=== PATIENT | female | born 1990 | race Caucasian/White ===

== ENCOUNTER 2019-12-13 02:19 | Emergency (ER) | payer SELFPAY ==
[2019-12-13] MEDS ORDERED: Lidocaine 1% with EPINEPHrine 1:100,000 20 ML MDV ONE (02:22)
[2019-12-13] MEDS ORDERED: Amoxicillin/Clavulanate K 875-125 MG Tab PO ONE (02:50)
[2019-12-13] MEDS ORDERED: Bacitracin Oint 1 GM U/D Packet TOP ONE (02:51)
[2019-12-13] MEDS ORDERED: Diphtheria,Pertussis(Acell),Tetanus Vaccine 0.5 ML Syringe IM ONE (02:51)
--- NOTE | 2019-12-13 02:57 | EDM.PDOC ---
ED HPI GENERAL MEDICAL PROBLEM - General Chief Complaint: Laceration Stated Complaint: RT HAND INJURY Time Seen by Provider: 12/13/19 02:52 Source of Information: Reports: Patient History Limitations: Reports: No Limitations - History of Present Illness INITIAL COMMENTS - FREE TEXT/NARRATIVE: 29-year-old female presents the emergency room with chief complaint of laceration to the right hand along the webspace of the thumb after slamming it in a door. Onset: Today Duration: Hour(s): (1 hour prior to presentation) Location: Reports: Upper Extremity, Right Severity: Mild Improves with: Reports: None Worsens with: Reports: None Abdomen Pain Score (Numeric/FACES): 10 - Related Data Allergies Allergy/AdvReac Type Severity Reaction Status Date / Time Latex, Natural Rubber Allergy Rash Verified 12/13/19 02:25 Home Meds: Home Meds . [No Known Home Meds] 12/13/19 [History] Past Medical History HEENT History: Reports: None Cardiovascular History: Reports: None Respiratory History: Reports: None Gastrointestinal History: Reports: None Genitourinary History: Reports: None [employer]ATE History: Reports: None Musculoskeletal History: Reports: None Neurological History: Reports: None Psychiatric History: Reports: None Endocrine/Metabolic History: Reports: None Insulin Pump Model and Relay Motorman: N/A Hematologic History: Reports: None Immunologic History: Reports: None Oncologic (Cancer) History: Reports: None Dermatologic History: Reports: None - Infectious Disease History Infectious Disease History: Reports: None - Past Surgical History Head Surgeries/Procedures: Reports: None Female Surgical History: Reports: None Social & Family History - Family History Family Medical History: Noncontributory - Tobacco Use Smoking Status *Q: Never Smoker - Caffeine Use Caffeine Use: Reports: None - Recreational Drug Use Recreational Drug Use: No ED ROS GENERAL - Review of Systems Review Of Systems: See Below Constitutional: Reports: No Symptoms HEENT: Reports: No Symptoms Respiratory: Reports: No Symptoms Cardiovascular: Reports: No Symptoms Endocrine: Reports: No Symptoms GI/Abdominal: Reports: No Symptoms : Reports: No Symptoms Musculoskeletal: Reports: No Symptoms Skin: Reports: Bruising, Wound, Other (Sustained a 4 cm laceration to the webspace dorsal aspect of the hand) Neurological: Reports: No Symptoms Psychiatric: Reports: No Symptoms Hematologic/Lymphatic: Reports: No Symptoms Immunologic: Reports: No Symptoms ED EXAM, SKIN/RASH Exam: See Below Text/Narrative:: 29-year-old female sustained a 4 cm laceration to the dorsal aspect of the webspace of the right hand. Patient has good range of motion neurovascular intact. Patient has a incision not involving any tendon or vascular aspect. Exam Limited By: No Limitations General Appearance: Alert, WD/WN, No Apparent Distress Eye Exam: Bilateral Eye: Normal Fundi, Normal Inspection, PERRL Ears: Normal External Exam, Normal Canal Head: Atraumatic Neck: Normal Inspection Respiratory/Chest: No Respiratory Distress, Lungs Clear Cardiovascular: Normal Peripheral Pulses, Regular Rate, Rhythm GI/Abdominal: Normal Bowel Sounds, Soft, Non-Tender (Female) Exam: Deferred Rectal (Female) Exam: Deferred Back Exam: Normal Inspection, Full Range of Motion Extremities: Normal Inspection, Other (4 cm laceration to the dorsal aspect of the left hand along the webspace. Laceration appears not to involve any ligaments or vascular structure.) Skin: Warm, Mottled, Wound/Incision Location, Skin: Upper Extremity, Right Associated features: Tenderness, Swelling Lymphatic: No Adenopathy ED SKIN PROCEDURES - Laceration/Wound Repair Right Hand Appearance: Linear Distal NVT: Neuro & Vascular Intact, No Tendon Injury Anesthetic Type: Local Local Anesthesia - Lidocaine (Xylocaine): 1% with EPI Local Anesthetic Volume: 4cc Skin Prep: Chlorhexidine (Hibiciens) Exploration/Debridement/Repair: Wound Explored, No Foreign Material Found Closed with: Sutures Lac/Wound length In cm: 4 Suture Size: 4-0 Suture Type: Nylon, Mattress Suture Size: 4-0 # of Sutures: 4 Repaired with: Other Drain Placement: No Sterile Dressing Applied: Nurse Tetanus Status Addressed: Yes Complications: No Course - Vital Signs Text/Narrative:: 29-year-old female presents the emergency room after injuring her hand by closing it in a door. Patient sustained a 4 cm laceration to the dorsal aspect of the right hand. Patient has full range of motion neurologically intact. Patient has no evidence of any bony or joint involvement. Patient's wound was addressed irrigated and cleaned by the nurses prior to presentation. Patient was anesthetized with 1% lidocaine with epi approximately 5 cc. The wound was explored 0 debridement was done. No foreign bodies were seen. The wound was irrigated approximately 20 cc again. Wound was closed using sterile technique 4-0 Dermalon with a mattress stitch. Patient received a tetanus shot and a dressing was placed. Patient also was given 875 mg of Augmentin.. Patient will be discharged will condition will follow up in [place]. Patient has been given 4 days of Augmentin and told to follow up within 7 days for suture removal. Patient told to follow-up at the nearest emergency room if hand becomes painful red swollen or any signs of infection. Also instructed to present to the closest hospital for any signs of numbness. Last Recorded V/S: Last Vital Signs Temp 97 F 12/13/19 02:25 Pulse 89 12/13/19 02:25 Resp 18 12/13/19 02:25 BP 121/98 H 12/13/19 02:25 Pulse Ox 98 12/13/19 02:25 - Orders/Labs/Meds Orders: Active Orders 24 hr Category Date Time Status Vaccines to be Administered [RC] PER UNIT ROUTINE Care 12/13/19 02:51 Ordered Amoxicillin/Clavulanate K [Augmentin 875 MG/125 MG] Med 12/13/19 02:50 Once 1 tab PO ONETIME ONE Bacitracin [Bacitracin Oint 1 GM] Med 12/13/19 02:51 Once 1 dose TOP ONETIME ONE Diphth,Pertuss(Acell),Tet Vac [Adacel] Med 12/13/19 02:51 Once 0.5 ml IM .ONCE ONE Medication Orders Amoxicillin/Clavulanate Potassium (Augmentin 875 Mg/125 Mg) 1 tab PO ONETIME ONE Stop: 12/13/19 02:51 Bacitracin (Bacitracin Oint 1 Gm) 1 dose TOP ONETIME ONE Stop: 12/13/19 02:52 Diphtheria/Tetanus/Acell Pertussis (Adacel) 0.5 ml IM .ONCE ONE Stop: 12/13/19 02:52 Meds: Medications Generic Name Dose Route Start Last Admin Trade Name Freq PRN Reason Stop Dose Admin Amoxicillin/Clavulanate Potassium 1 tab 12/13/19 02:50 Augmentin 875 Mg/125 Mg PO 12/13/19 02:51 ONETIME ONE Bacitracin 1 dose 12/13/19 02:51 Bacitracin Oint 1 Gm TOP 12/13/19 02:52 ONETIME ONE Diphtheria/Tetanus/Acell Pertussis 0.5 ml 12/13/19 02:51 Adacel IM 12/13/19 02:52 .ONCE ONE Discontinued Medications Generic Name Dose Route Start Last Admin Trade Name Keila PRN Reason Stop Dose Admin Lidocaine/Epinephrine Confirm 12/13/19 02:22 Xylocaine 1% With Epinephrine 1:100,000 Administered 12/13/19 02:23 Dose 20 ml .ROUTE .STK-MED ONE Departure - Departure Time of Disposition: 03:03 Disposition: Home, Self-Care 01 Condition: Good Clinical Impression: Laceration of hand Qualifiers: Encounter type: initial encounter Foreign body presence: without foreign body Laterality: right Qualified Code(s): S61.411A - Laceration without foreign body of right hand, initial encounter - Discharge Information *PRESCRIPTION DRUG MONITORING PROGRAM REVIEWED*: No Instructions: Laceration Care, Adult, Laceration Care, Adult, [id number], Sutured Wound Care, [id number] Sepsis Event Note - Evaluation Sepsis Screening Result: No Definite Risk - Focused Exam Vital Signs: Vital Signs Temp Pulse Resp BP Pulse Ox 12/13/19 02:25 97 F 89 18 121/98 H 98 Date Exam was Performed: 12/13/19 Time Exam was Performed: 02:52 - My Orders Last 24 Hours: My Active Orders 12/13/19 02:50 Amoxicillin/Clavulanate K [Augmentin 875 MG/125 MG] 1 tab PO ONETIME ONE 12/13/19 02:51 Vaccines to be Administered [RC] PER UNIT ROUTINE Bacitracin [Bacitracin Oint 1 GM] 1 dose TOP ONETIME ONE Diphth,Pertuss(Acell),Tet Vac [Adacel] 0.5 ml IM .ONCE ONE - Assessment/Plan Last 24 Hours: My Active Orders 12/13/19 02:50 Amoxicillin/Clavulanate K [Augmentin 875 MG/125 MG] 1 tab PO ONETIME ONE 12/13/19 02:51 Vaccines to be Administered [RC] PER UNIT ROUTINE Bacitracin [Bacitracin Oint 1 GM] 1 dose TOP ONETIME ONE Diphth,Pertuss(Acell),Tet Vac [Adacel] 0.5 ml IM .ONCE ONE
== END 2019-12-13 03:20 | disposition home or self-care (01) ==
LOC: MW.ED 02:19
DX: S61.411A Laceration without foreign body of right hand, initial encounter (principal); Z91.040 Latex allergy status; Z23 Encounter for immunization; W22.8XXA Striking against or struck by other objects, initial encounter
CPT/HCPCS: 12002; 90471; 90715; 99282; A9270; 99283

== ENCOUNTER 2019-12-18 12:53 | Emergency (ER) | payer SELFPAY | END 2019-12-18 13:12 | disposition home or self-care (01) | LOC: MW.ED 12:53 | DX: Z53.21 Procedure and treatment not carried out due to patient leaving prior to being seen by health care provider (principal) ==

== ENCOUNTER 2019-12-20 09:46 | Emergency (ER) | payer SELFPAY | END 2019-12-20 10:34 | disposition left against medical advice (07) | LOC: MW.ED 09:46 | DX: Z53.21 Procedure and treatment not carried out due to patient leaving prior to being seen by health care provider (principal) ==